=== PATIENT | female | born 1990 | race Caucasian/White ===

== ENCOUNTER 2024-01-13 23:32 | Emergency (ER) | payer OTHER ==
[~2024-01-13] VITALS: Ht 167.6 cm; Wt 100.0 kg
[2024-01-13 23:46] VITALS: BP 133/88; PULSE 100; RESP 16; TEMP 98.5; O2SAT 99
[2024-01-14] MEDS: LORAZEPAM 0.5MG TABLET PO ONE (01:05)
== END 2024-01-14 01:40 | disposition home or self-care (01) ==
LOC: ER 23:32
DX: F41.9 Anxiety disorder, unspecified (principal); Z98.890 Other specified postprocedural states
CPT/HCPCS: 99283